=== PATIENT | female | born 1930 | race Caucasian/White ===

== ENCOUNTER 2016-12-31 10:49 | Inpatient (IN) | payer SELFPAY ==
[~2016-12-31] VITALS: Ht 167.6 cm; Wt 58.1 kg
[~2016-12-31 10:49] MED LIST: AMIO200T2 PO; ATOR10TA PO; BLOO-697 IN; CALC600T20 PO; DOCU-25 PO; ESCI10TA PO; GUAI100S11 PO; INSU100V3 SQ; IPRA0.2S9 IH; LISI-607 PO; METO25TA6 PO; ONDA-25 PO; WARF1TAB47 PO; ZOLP5TAB7 PO
--- NOTE | 2016-12-31 10:54 | NUR ---
Berta from [facility] for glf. Patient noted with hematoma on left side of forehead. Patient is awake, however confused. Sating well on room. Skin is warm to touch and non diaphoretic. Patient is afebrile. vss. Gowned pt and placed on tele monitor.
--- NOTE | 2016-12-31 10:55 | NUR ---
Md aguilar at bedside
[2016-12-31] MEDS ORDERED: IV NS 0.9% 1,000 ML BAG IV ONE (11:00)
--- NOTE | 2016-12-31 11:32 | NUR ---
pt was taken to ct
[2016-12-31 11:40] LABS: CALCIUM, SERUM 8.7 mg/dL (8.5-10.1); CARBON DIOXIDE 30 mmol/L (21-32); CHLORIDE 108 mmol/L (98-107); CREATININE 1.2 mg/dL (0.6-1.3); GLUCOSE 107 mg/dL (74-106); POTASSIUM 4.6 mmol/L (3.5-5.1); SODIUM SERUM 142 mmol/L (136-145); UREA NITROGEN, BLOOD 35 mg/dL (7-18)
[2016-12-31 11:46] LABS: BASOPHILS % (AUTO) 0.5 % (0.0-2.0); HEMATOCRIT 36 % (33-45); HEMOGLOBIN 11.9 g/dL (11.5-14.8); INR 1.1 (0.87-1.13); LYMPHOCYTES # (AUTO) 0.5 /CMM (0.8-4.8); LYMPHOCYTES % (AUTO) 11.4 % (20.0-44.0); MEAN CORPUSCULAR HEMOGLOBIN 33 PG (26.0-33.0); MEAN CORPUSCULAR HGB CONC 33 g/dl (31.0-36.0); MEAN CORPUSCULAR VOLUME 99 fL (82-100); MONOCYTES # (AUTO) 0.5 /CMM (0.1-1.30); MONOCYTES % (AUTO) 11.8 % (2.0-12.0); NEUTROPHILS # (AUTO) 3.5 /CMM (1.8-8.9); NEUTROPHILS % (AUTO) 75.3 % (43.0-81.0); PLATELET COUNT (AUTO) 106 /CMM (150-450); PROTHROMBIN TIME 11.5 SECS (9.5-12.7); RDW COEFFICIENT OF VARIATION 14.3 (11.5-15.0); RED BLOOD CELL COUNT(AUTO) 3.62 MIL/uL (4.0-5.2); WHITE BLOOD COUNT (AUTO) 4.5 K/uL (4.3-11.0)
[2016-12-31 11:47] LABS: TROPONIN I 0.032 ng/mL (0.00-0.056)
--- NOTE | 2016-12-31 13:22 | NUR ---
URINE SAMPLE SENT TO LAB
[2016-12-31 13:25] LABS: APPEARANCE,URINE Clear (CLEAR); BILIRUBIN,URINE Negative (NEGATIVE); BLOOD, URINE Trace-lysed Ery/uL (NEGATIVE); COLOR,URINE Yellow (YELLOW); KETONES,URINE Negative (NEGATIVE); LEUKOCYTE ESTERASE ,URINE Negative (NEGATIVE); NITRITE, URINE Negative (NEGATIVE); PH,URINE 6.5 (5.0-8.0); PROTEIN,URINE Negative (NEGATIVE); UGLUCOSE Negative (NEGATIVE); UROBILINOGEN,URINE 0.2 EU/dL (0.2)
[2016-12-31 13:30] LABS: BACTERIA,URINE Few /HPF (None Seen); SQUAMOUS EPITHELIAL CELL,UR Few /HPF (None Seen); WBC,URINE 0-2 /HPF (0-3)
--- NOTE | 2016-12-31 13:50 | NUR ---
CALLED [facility], POSITION CLASSIFIER WAS PAGED.
--- NOTE | 2016-12-31 14:22 | NUR ---
REPORT GIVEN TO JEAN CONLEY [facility]
[2016-12-31] MEDS ORDERED: RIVA10TA PO (14:43)
[2016-12-31] MEDS ORDERED: ESCI5TAB PO (14:43)
[2016-12-31] MEDS ORDERED: HYDR-552 PO (14:43)
[2016-12-31] MEDS ORDERED: IV NS 0.9% 1,000 ML IV PRN (14:46)
[2016-12-31] MEDS ORDERED: ACETAMINOPHEN 325 MG TABLET PO PRN (15:00)
[2016-12-31] MEDS ORDERED: HYDROCODONE/APAP 5/325MG 1 EACH TABLET PO PRN ×2 (15:00)
[2016-12-31] MEDS: AMIODARONE HCL 200 MG TABLET PO SCH (15:00)
[2016-12-31] MEDS ORDERED: ZOLPIDEM TARTRATE 5 MG TABLET PO PRN ×2 (15:00)
[2016-12-31] MEDS ORDERED: MAGNESIUM HYDROXIDE 30 ML UDC PO PRN (15:00)
[2016-12-31] MEDS: LISINOPRIL (5MG) 5 MG TABLET PO SCH (15:00)
[2016-12-31] MEDS: ATORVASTATIN 10 MG TABLET PO SCH ×2 (15:00→22:30)
[2016-12-31] MEDS ORDERED: ONDANSETRON HCL/PF 4 MG/2 ML VIAL IVP PRN (15:00)
[2016-12-31] MEDS: PANTOPRAZOLE 40 MG TABLET.DR PO SCH (15:00)
[2016-12-31] MEDS ORDERED: MAG HYDROX/AL HYDROX/SIMETH 30 ML UDC PO PRN (15:00)
--- NOTE | 2016-12-31 15:12 | NUR ---
SHUCKER EVALUATION FOR HX OF DIABETES. Addendum: 12/31/16 at 1558 by YAEL DANIELSON RN Amended: Links added.
[2016-12-31 15:30] VITALS: BP 130/71
--- NOTE | 2016-12-31 15:30 | NUR ---
RECEIVED PT FROM ER, REPORT GIVEN FROM FRANCI. PT IS AWAKE AND ALERT, CONFUSED. FAMILY IS AT BEDSIDE. SAFETY MEASURES ARE IN PLACE. WILL CONTINUE TO MONITOR.
[2016-12-31 16:00] VITALS: BP 130/71
[2016-12-31] MEDS: BLOOD SUGAR DIAGNOSTIC 1 EACH STRIP IN SCH (16:21)
[2016-12-31] MEDS: METOPROLOL TARTRATE 25 MG TABLET PO SCH (18:00)
--- NOTE | 2016-12-31 18:25 | NUR ---
RN NOTE PT IS IN SLEEPING INTERMITTENTLY WITH FAMILY AT BEDSIDE. PT SHOWS NO SIGNS OF DISTRESS OR PAIN. PT ON ROOM AIR SATING 95. IV ON RFA RUNNING NS AT 75 ML/HR. BED IS IN LOW AND LOCKED POSITION, SIDE RAILS UP X 2 AND CALL LIGHT IS IN REACH. WILL ENDORSE TO FABRICATION INSPECTOR RN FOR CONTINUITY OF CARE.
[2016-12-31 20:00] VITALS: BP 99/63
[2016-12-31 20:18] VITALS: BP 99/63
[2016-12-31] MEDS ORDERED: DIGOXIN 0.25 MG TABLET ONE (21:59)
[2016-12-31] MEDS ORDERED: DIGOXIN 0.25 MG TABLET PO SCH (22:00)
[2017-01-01] VITALS (8 sets, daily range): BP systolic 104–144; BP diastolic 53–72
[2017-01-01] MEDS: METOPROLOL TARTRATE 25 MG TABLET PO SCH ×4 (01:12→18:46)
[2017-01-01] MEDS ORDERED: DIGOXIN INJ 0.5 MG/2 ML AMPUL ONE ×2 (01:37→08:33)
[2017-01-01] MEDS: DIGOXIN INJ 0.5 MG/2 ML AMPUL IV SCH ×2 (01:45→06:00)
[2017-01-01 07:16] LABS: BASOPHILS % (AUTO) 0.6 % (0.0-2.0); EOSINOPHILS % (AUTO) 0.9 % (0.0-6.0); HEMATOCRIT 39 % (33-45); HEMOGLOBIN 12.9 g/dL (11.5-14.8); LYMPHOCYTES # (AUTO) 1.3 /CMM (0.8-4.8); LYMPHOCYTES % (AUTO) 23.3 % (20.0-44.0); MEAN CORPUSCULAR HEMOGLOBIN 33 PG (26.0-33.0); MEAN CORPUSCULAR HGB CONC 33 g/dl (31.0-36.0); MEAN CORPUSCULAR VOLUME 101 fL (82-100); MONOCYTES # (AUTO) 0.7 /CMM (0.1-1.30); MONOCYTES % (AUTO) 12.1 % (2.0-12.0); NEUTROPHILS # (AUTO) 3.5 /CMM (1.8-8.9); NEUTROPHILS % (AUTO) 63.1 % (43.0-81.0); PLATELET COUNT (AUTO) 102 /CMM (150-450); RDW COEFFICIENT OF VARIATION 15.1 (11.5-15.0); RED BLOOD CELL COUNT(AUTO) 3.89 MIL/uL (4.0-5.2); WHITE BLOOD COUNT (AUTO) 5.6 K/uL (4.3-11.0)
[2017-01-01] MEDS: PANTOPRAZOLE 40 MG TABLET.DR PO SCH (07:30)
--- NOTE | 2017-01-01 10:00 | NUR ---
MS RN OPENING SEE PAPER CHARTING FOR PATIENT OPENING NOTE AND PROGRESS NOTES/ORDERS
[2017-01-01 10:03] LABS: ALANINE AMINOTRANSFERASE 23 U/L (12-78); ALBUMIN 3.4 g/dL (3.4-5.0); ALKALINE PHOSPHATASE 90 U/L (46-116); ASPARTATE AMINOTRANSFERASE 34 U/L (15-37); BILIRUBIN,TOTAL 0.9 mg/dL (0.2-1.0); CALCIUM, SERUM 8.6 mg/dL (8.5-10.1); CARBON DIOXIDE 30 mmol/L (21-32); CHLORIDE 110 mmol/L (98-107); CHOLESTEROL 105 mg/dL (<200); CREATININE 1.1 mg/dL (0.6-1.3); GLUCOSE 85 mg/dL (74-106); HDL CHOLESTEROL 47 mg/dL (40-60); LDL 55 mg/dL (0-99); MAGNESIUM 2.3 mg/dL (1.8-2.4); PHOSPHORUS 4.5 mg/dL (2.5-4.9); SODIUM SERUM 145 mmol/L (136-145); TOTAL PROTEIN, SERUM 6.8 g/dL (6.4-8.2); TRIGLYCERIDES 41 mg/dL (30-150); UREA NITROGEN, BLOOD 29 mg/dL (7-18)
[2017-01-01] MEDS: AMIODARONE HCL 200 MG TABLET PO SCH (10:15)
[2017-01-01] MEDS: LISINOPRIL (5MG) 5 MG TABLET PO SCH (10:15)
[2017-01-01] MEDS: ESCITALOPRAM OXALATE (10 MG) 10 MG TABLET PO SCH (10:15)
[2017-01-01] MEDS: BLOOD SUGAR DIAGNOSTIC 1 EACH STRIP IN SCH (10:15)
[2017-01-01] MEDS: Z GUARD REMEDY 2 OZ OINT TP PRN ×2 (10:16→18:48)
--- NOTE | 2017-01-01 12:09 | NUR ---
GLUER AND WEDGER NOTES NOTIFIED DR STEWART OF PATIENT CT ABDOMEN RESULTS. NO NEW ORDERS AT THIS TIME
[2017-01-01] MEDS ORDERED: LEVOFLOXACIN 500 MG /D5W 100ML 500 MG in PREMIX 1 EA IV SCH ×2 (12:30→18:00)
[2017-01-01] MEDS ORDERED: FUROSEMIDE 20 MG/2 ML VIAL IV ONE (13:30)
[2017-01-01] MEDS: METRONIDAZOLE 500MG/ NS 100ML 500 MG in PREMIX 1 EA IV SCH ×2 (13:40→21:07)
--- NOTE | 2017-01-01 17:00 | NUR ---
TIRE INSPECTOR NOTES SPOKE WITH DR STEWART AND NOTIFIED PHARMACY WANTING CLARIFICATION ON LEVAQUIN/AMIODARONE INTERACTIONS. MD WILL CONTACT PHARMACY
[2017-01-01 18:11] LABS: THYROID STIMULATING HORMONE 5.186 uIU/mL (0.358-3.74)
--- NOTE | 2017-01-01 19:30 | NUR ---
RN NOTES RECEIVED PT. AWAKE ON BED, A/OX2, HEBREW SPEAKING, SR/A-FLUTTER HR -68, SITTER AT BEDSIDE, DENIES PAIN, NO SOB, CALL LIGHT WITHIN REACH, SIDERAILS UPX2 CONTINUE TO MONITOR
--- NOTE | 2017-01-01 19:31 | NUR ---
BELLOWS TESTER CLOSING PATIENT STABLE NO COMPLICATIONS. TELE HR 66 AFLUTTER. ALL DUE MEDS GIVEN AND ALL NEEDS MET. ALL NEEDS IN REACH BED LOWERED AND LOCKED, RAILS UPX3. SITTER AT SIDE. IV SALINE LOCKED. CARE ENDORSED TO JEAN MILLARD FOR NEHA
[2017-01-01] MEDS: ATORVASTATIN 10 MG TABLET PO SCH (21:07)
[2017-01-02] VITALS: BP 110/62
[2017-01-02] MEDS: METOPROLOL TARTRATE 25 MG TABLET PO SCH ×4 (00:25→17:29)
[2017-01-02 04:53] VITALS: BP 118/58
[2017-01-02] MEDS: METRONIDAZOLE 500MG/ NS 100ML 500 MG in PREMIX 1 EA IV SCH ×3 (05:22→21:19)
--- NOTE | 2017-01-02 06:58 | NUR ---
RN NOTES AWAKE, IV LINE PATENT, NO REDNESS OR SWOLLEN, MORNING CARE RENDERED, PT NEEDS ATTENDED. ENDORSED TO DAYSHIFT NURSE FOR CONTINUITY OF CARE
--- NOTE | 2017-01-02 07:25 | NUR ---
pigment furnace tender Initial Notes: Received patient resting in bed. Alert oriented x1. Non-labored breathing noted. No signs of distress. No facial grimacing noted. IV patent and intact. Bed alarm on. Bed at lowest position. Sitter at bedside. Will continue to monitor.
[2017-01-02 08:00] VITALS: BP 129/75
--- NOTE | 2017-01-02 08:00 | NUR ---
Tele HR 76 Aflutter A-fib
[2017-01-02] MEDS: BLOOD SUGAR DIAGNOSTIC 1 EACH STRIP IN SCH (08:06)
[2017-01-02] MEDS: AMIODARONE HCL 200 MG TABLET PO SCH (08:09)
[2017-01-02] MEDS: LISINOPRIL (5MG) 5 MG TABLET PO SCH (08:09)
[2017-01-02] MEDS: PANTOPRAZOLE 40 MG TABLET.DR PO SCH (08:10)
[2017-01-02] MEDS: ESCITALOPRAM OXALATE (10 MG) 10 MG TABLET PO SCH (08:11)
[2017-01-02 12:00] VITALS: BP_SYST 101; BP_DIAS 56; BP_DIAS 66
--- NOTE | 2017-01-02 12:56 | NUR ---
SW was informed by digital marketing project manager Susy that pt's daughter informed her that pt. does have [employer]. EDU called Nisreen x [phone] and left her a voicemail message informing her that pt. has [employer] and if she can look into the matter.
[2017-01-02] MEDS ORDERED: DIGOXIN 0.125 MG TABLET PO SCH (13:00)
[2017-01-02 16:00] VITALS: BP_SYST 124; BP_DIAS 60; BP_DIAS 64
[2017-01-02] MEDS: ASPIRIN EC 325 MG TABLET.DR PO SCH (19:07)
--- NOTE | 2017-01-02 19:26 | NUR ---
corn crop supervisor closing notes All needs provided, attended, and anticipated. Kept patient clean and comfortable in bed, call light with in patient reach, endorsed to next shift RN to continue care.
--- NOTE | 2017-01-02 19:30 | NUR ---
RN NOTE; PT IN BED AWAKE AND RESPONSIVE, MICRONESIAN SPEAKING , REPORTED "FEELING MUCH BETTER AND HAPPY TO BE HERE". BREATHING EVENLY.. NO SOB. NAD. A FLUTTER ON TELE MONITOR. SITTER AT THE BED SIDE FOR SAFETY. NEEDS ATTENDED. CALL LIGHT WITHIN REACH. WILL CONT TO MONITOR.
--- NOTE | 2017-01-02 19:45 | NUR ---
PT WAS SEEN BY DR. ANDREW Baker MD W/ RECOMMENDATION FOR COLONOSCOPY IN 6WEEKS. PT MADE AWARE BY USE OF AN PARK MAINTAINER AT THE BED SIDE.
[2017-01-02 20:00] VITALS: BP 107/57
[2017-01-02] MEDS: ATORVASTATIN 10 MG TABLET PO SCH (21:20)
[2017-01-03] VITALS: BP 126/54
[2017-01-03] MEDS: METOPROLOL TARTRATE 25 MG TABLET PO SCH ×2 (01:06→06:07)
[2017-01-03 04:00] VITALS: BP 124/61
[2017-01-03] MEDS: METRONIDAZOLE 500MG/ NS 100ML 500 MG in PREMIX 1 EA IV SCH ×2 (05:23→13:14)
[2017-01-03] MEDS ORDERED: INSULIN REGULAR, HUMAN 100 UNIT/ML 3 ML VIAL SQ PRN (05:30)
[2017-01-03] MEDS ORDERED: DEXTROSE 50%-WATER 50 ML DISP.SYRIN IV PRN (05:30)
--- NOTE | 2017-01-03 06:36 | NUR ---
RN NOTE , PT IN BED SLEEPING, AROUSES EASILY. BREATHING EVENLY. NO SOB. A FLUTTER ON TELE MONITOR, NO ACUTE EVENT DURING THE NIGHT. HAD A GOOD NIGHT SLEEP W/ NO C/O PAIN OR DISCOMFORT . NEEDS ATTENDED . REMAINED CLEAN AND DRY . UNDER CLOSE SUPERVISION FOR SAFETY AND FALL RISK. CALL LIGHT WITHIN REACH. WILL CONT TO MONITOR AND WILL ENDORSE TO AM SHIFT FOR NEHA.
[2017-01-03] MEDS: BLOOD SUGAR DIAGNOSTIC 1 EACH STRIP IN SCH ×3 (06:54→16:38)
--- NOTE | 2017-01-03 07:50 | NUR ---
RN NOTES RECEIVED PT. PT IS STABLE AND IN BED. A/OX1, GREEK SPEAKING. NO S/S OF PAIN OR DISTRESS. PT IS ON A TELE MONITOR SHOWING A. FLUTTER AT 52 BPM. IV ACCESS IS LOCATED ON R HAND 22G. SAFETY MEASURES IN PLACE. SITTER IS AT THE BEDSIDE. WILL CONTINUE TO MONITOR.
[2017-01-03] MEDS: ESCITALOPRAM OXALATE (10 MG) 10 MG TABLET PO SCH (08:16)
[2017-01-03] MEDS: AMIODARONE HCL 200 MG TABLET PO SCH (08:18)
[2017-01-03] MEDS: LISINOPRIL (5MG) 5 MG TABLET PO SCH (08:18)
[2017-01-03] MEDS: ASPIRIN EC 325 MG TABLET.DR PO SCH (08:18)
[2017-01-03] MEDS: PANTOPRAZOLE 40 MG TABLET.DR PO SCH (08:19)
[2017-01-03] MEDS ORDERED: FUROSEMIDE 20 MG TABLET PO SCH (09:00)
--- NOTE | 2017-01-03 11:36 | NUR ---
RN NOTES COOPER FOUND BS OF 131. INSULIN NOT GIVEN BECAUSE PT DOES NOT EAT ADEQUATELY.
[2017-01-03 16:00] VITALS: BP 144/65
[2017-01-03] MEDS ORDERED: METOPROLOL TARTRATE 25 MG TABLET PO SCH (17:00)
--- NOTE | 2017-01-03 18:42 | NUR ---
RN CLOSING NOTE PT IS IN BED STABLE. PT IS AWAITING FAMILY ARRIVAL FOR DISCHARGE. EXIT CARE COMPLETED. WILL ENDORSE TO SENIOR AGRICULTURAL ASSISTANT FOR NEHA.
--- NOTE | 2017-01-03 19:22 | NUR ---
dc notes: received report from robert rn, pt in bed, awake, a/o x3 family at bed side, pt for dc awaiting for dc paper works, daughter at bed side,all dc paper works completed by day rn, all photos attached to chart, belongings signed by daughter, dc paper works signed by daughter too, vs taken and recorded, prescription given to family, iv removed armband removed, pt left in stable condition, accompanied by daughter.
[2017-01-03 19:24] VITALS: BP 138/55
== END 2017-01-03 19:20 | disposition home or self-care (01) | DRG 604 ==
LOC: ER 10:54 → TELE 14:13
PROVIDERS: ADMIT Internal Medicine; ATTEND Internal Medicine
DX: S00.03XA Contusion of scalp, initial encounter (principal); G93.40 Encephalopathy, unspecified; I50.43 Acute on chronic combined systolic (congestive) and diastolic (congestive) heart failure; K57.32 Diverticulitis of large intestine without perforation or abscess without bleeding; D68.59 Other primary thrombophilia; I42.9 Cardiomyopathy, unspecified; I48.92 Unspecified atrial flutter; N13.2 Hydronephrosis with renal and ureteral calculous obstruction; K57.92 Diverticulitis of intestine, part unspecified, without perforation or abscess without bleeding; D69.6 Thrombocytopenia, unspecified; E11.9 Type 2 diabetes mellitus without complications; F03.90 Unspecified dementia, unspecified severity, without behavioral disturbance, psychotic disturbance, mood disturbance, and anxiety; H54.8 Legal blindness, as defined in USA; K52.9 Noninfective gastroenteritis and colitis, unspecified; K63.9 Disease of intestine, unspecified; Z79.899 Other long term (current) drug therapy; Z79.01 Long term (current) use of anticoagulants; W19.XXXA Unspecified fall, initial encounter; I67.2 Cerebral atherosclerosis; Z88.0 Allergy status to penicillin; Y92.129 Unspecified place in nursing home as the place of occurrence of the external cause; I48.91 Unspecified atrial fibrillation; K63.89 Other specified diseases of intestine; K57.90 Diverticulosis of intestine, part unspecified, without perforation or abscess without bleeding; I10 Essential (primary) hypertension; K43.9 Ventral hernia without obstruction or gangrene
CPT/HCPCS: 36415; 70450-TC; 71010-TC; 72128-TC; 74000-TC; 76770-TC; 80048-TC; 80053-TC; 80061-TC; 80162-TC; 81000-TC; 82962-TC; 83605-TC; 83735-TC; 84100-TC; 84439-TC; 84443-TC; 84484-TC; 85025-TC; 85730-TC; 86304; 87040-TC; 87081-TC; 87086-TC; 92611-TC; 93307-TC; 97001-TC; 97116-TC; 97530-TC; A4216; A4606; J1160; J1815; J1940; J1956; J3490; J7030; Z7610